=== PATIENT | female | born 1955 | race Caucasian/White ===

== ENCOUNTER → 2018-12-05 | Outpatient (CLI) | payer OTHER ==
[~2018-12-05] VITALS: Ht 160 cm; Wt 70.3 kg
[~2018-12-05] MED LIST: ASPIR 8181 MG PO; CRESTOR20 MG PO; ESTRADIOL 1 MG T1 M1 PO; POTASSIUM GLUCO99 M2 PO; UNICOMPLEX M TA1 TA1 PO; ZETIA10 MG PO
[2018-12-05 07:36] VITALS: BP 127/68
--- NOTE | 2018-12-05 08:12 | EKG ---
[address] [address] ELECTROCARDIOGRAM REPORT Name: SHARYN CALDERON [facility] [id number] ������������������ Admission: 12/05/18 ������������������ Attend Phys: Chuck Smiley MD, Discharge: ������������������ Date of : 57 Report #: [id number] ����������������������������������������������������������������� [id number] THIS REPORT FOR: //name// [facility] Test Date: 2018-12-05 Test Time: 07:20:22 Pat Name: SHARYN CALDERON Department: Room: Gender: F Separator Operator: Belia SANDERS : 1955 Requested By: Chuck Smiley Order Number: [id number] MD: Alin Wild Measurements Intervals [place] Rate: 74 P: -27 [place]: 162 QRS: 25 QRSD: 94 T: 42 QT: 395 QTc: 439 Interpretive Statements Sinus rhythm No previous ECG available for comparison Electronically Signed On 12-05-2018 8:12:26 CDT by Alin Wild [email or web address] ��������������������������������������������� <ELECTRONICALLY SIGNED> ���������������������������������������� By: Alin Wild MD ��������������������������������������������� 12/05/18 0812 9 07 Alin Wild MD /[place]
--- NOTE | 2018-12-05 09:09 | CATHLAB ---
[facility] [place] [address] INVASIVE PROCEDURE REPORT Name: SHARYN CALDERON Room #: REG CL Rachael#: [id number] ������������� Admission: 12/05/18 ������������� Attend Phys: Chuck Smiley, Discharge: ��� ������������� ��� Date of : 57 Date of Service: 12/05/18 0909 �� Report #: [id number] �������� ��������������������������������������������[id number] THIS REPORT FOR: //name// APPROVED REPORT Study performed: 12/05/2018 07:30:35 Patient Details Patient Status: Out-Patient Room #: The patient is a 63 year-old female Event Personnel Chuck Smiley Cherry Cutter, Jaxon Nicole Monitor, Tianna Serna Monitor, Consuelo Fung RTR, Shahrzad Lam Ceola RN director personal Performed Left Heart Cath w/or w/o Coronaries [id number] [facility] Procedure Narrative The patient was brought electively to the Cardiac Catheterization Laboratory and was prepped and draped in a sterile manner. The Right Groin^ was infiltrated with 1% Lidocaine subcutaneous anesthesia. A PINNACLE 6FR Sheath #[id number] sheath was inserted into the RFA^. Coronary angiography was performed using coronary diagnostic catheters. The left coronary system was accessed and visualized with a 6FR MULTIPACK W/145 PIG #[id number] catheter. The left ventricle was accessed and visualized with a 6FR MULTIPACK W/145 PIG #[id number] catheter. Left ventricular/Aortic Valve gradient assessed via catheter pullback. Left ventriculogram was performed in [place], 30 degree projection. Closure device was deployed with a 6 Fr Mynx. The patient tolerated the procedure well and there were no complications associated with the procedure. There was no hematoma. Intraoperative Conscious Sedation Sedation start time: 754 Case end Time: 825 Fentanyl 50.0 mcg Versed 1.0 mg Fluoro Time: 1.57 minutes Dose: DAP 2870.18 cGycm2 371 mGy Contrast Type and Amount: Omnipaque 125 ml Coronary Angiography The patient's coronary anatomy is right dominant. [facility] [email or web address] [place] [address] INVASIVE PROCEDURE REPORT Name: SHARYN CALDERON Room #: REG [facility]#: [id number] ������������� Admission: 12/05/18 ������������� Attend Phys: Chuck Smiley, Discharge: ��� ������������� ��� Date of : 57 Date of Service: 12/05/18 0909 �� Report #: [id number] �������� ��������������������������������������������[id number] Diagnostic Cath Left Main Normal left main LAD Mild 10-20% plaquing in the proximal portion of the left anterior descending Diagonal 1 First diagonal branch which was small in caliber, was occluded at its origin. There were faint left to left collaterals Circumflex Circumflex was large but nondominant, angiographically normal. OM1 High arising first marginal branch, angiographically normal OM2 Second marginal branch, angiographically normal Right Coronary The right coronary was dominant angiographically normal R PDA Relatively small posterior descending, angiographically normal RPLV Large posterolateral branch, angiographically normal. Left Ventriculography The left ventricle is normal in size with normal contractility. The left ventricular ejection fraction is estimated to be 60-65%. Left ventricular wall motion abnormalities are not present. There is no mitral insufficiency. Hemodynamics The aortic pressure is 149/67 mmHg with a mean of 104 mmHg. The left ventricular pressure is 194/2 mmHg with a mean of mmHg. The left ventricular end diastolic pressure is 13 mmHg. Conclusion 1. Normal global and regional left ventricular systolic function. Ejection fraction 65% 2. Normal left main 3. Mild 10-20% proximal LAD plaquing. 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 Normal circumflex and right coronary arteries. Right coronary dominant circulation. Recommendations Aggressive Medical Therapy ��������������������������������������������� <ELECTRONICALLY SIGNED> ���������������������������������������� By: Chuck Smiley MD, FACC ��������������������������������������������� 12/05/18908 8 8 Chuck Smiley MD, FACC /INF
== END | disposition home or self-care (01) ==
LOC: CATH 06:47
DX: I25.10 Atherosclerotic heart disease of native coronary artery without angina pectoris (principal); E78.5 Hyperlipidemia, unspecified; K21.9 Gastro-esophageal reflux disease without esophagitis; Z82.49 Family history of ischemic heart disease and other diseases of the circulatory system; Z98.890 Other specified postprocedural states; Z88.2 Allergy status to sulfonamides; Z79.82 Long term (current) use of aspirin; Z79.899 Other long term (current) drug therapy